=== PATIENT | female | born 1975 | race Caucasian/White ===

== ENCOUNTER 2016-07-04 11:51 | Emergency (ER) | payer BC ==
[2016-07-04 12:12] VITALS: BP 136/96; BMI 44.6
[2016-07-04] MEDS ORDERED: TORADOL 60 MG VIAL IM ONE (12:17)
[2016-07-04] MEDS ORDERED: NORFLEX INJ IM ONE (12:17)
[2016-07-04] MEDS ORDERED: NORFLEX INJ ONE (12:20)
[2016-07-04] MEDS ORDERED: TORADOL 60 MG VIAL ONE (12:20)
--- NOTE | 2016-07-04 12:28 | DR.GENAD ---
HPI - PCP Primary Care Physician: SHEILA SALAZAR - HPI Comment HPI Comment: HISTORY BELOW. - Complaint/Symptoms Chief Complaint Doctors Comments: LOWER BACK PAIN GOING TO RIGHT LEG, SOMETIMES LEFT WELL. NECK PAIN AND CARPAL TUNNEL SYNDROM. FLARE UP PAST FEW DAYS. WORSE TONIGHT. HEADACHE PRESENT. Chief Complaint:: PATIENT STATED THAT HAS BACK PAIN WITH NUMBNESS IN RIGHT LEG AND SOMETIMES LEFT. TWO DISCS IN NECK WITH HEADACHE. CARPAL TUNNEL IN BOTH ARMS - Nurses notes reviewed Nurses Notes Review: Yes - Source History Provided: Patient - Mode of Arrival Mode of Arrival: Ambulatory - Timing Onset of Chief Complaint: 12/13/15 Came on: Suddenly - Duration Duration: Constant Duration: Days - Severity Severity: Moderate PMH - PMH Past Medical History: Yes Past Medical History: Anxiety, Hypertension Past Surgical History: Yes Surgical History: Cholecystectomy, Ortho Surgery, Other Past Surgical History Comment: BREAST REDUCTION, TUMMY TUCK - Family History History of Family Medical Conditions: Yes Family Medical History: Diabetes Mellitus - Social History Does patient currently use any type of tobacco product: No Have you used tobacco products in the last 12 months: No Type of Tobacco Use: None Does any household member use tobacco: No Alcohol Use: Occasionally Do you use any recreational Drugs:: No Lives With: Family Lives Where: Home - infectious screening In the last 2 months have you had wt loss of >10#?: NO Have you had fever, night sweats or hemotysis?: No Have you traveled outside the country in the last 6 months?: No Isolation: Standard ROS - Review of Systems Constitutional: No Symptoms Reported Eyes: No Symptoms Reported ENTM: No Symptoms Reported Respiratoy: No Symptoms Reported Cardiovascular: No Symptoms Reported Gastrointestinal/Abdominal: No Symptoms Reported Genitourinary: No Symptoms Reported Neurological: Headache Musculoskeletal: Back Pain, Muscle Pain, Back, Wrist, Leg Integumentary: No Symptoms Reported Hematologic/Lymphatic: No Symptoms Reported Endocrine: No Symptoms Reported All Other Systems: Reviewed and Negative PE - Vital Signs Vitals: Pulse Rate 70 Respiratory Rate 20 Blood Pressure [Right Arm] 125/83 Blood Pressure 136/96 O2 Sat by Pulse Oximetry 99 - General Limitations: No Limitations General Appearance: Alert - Head Head Exam: Normal Inspection - Eyes Eye exam: Normal Appearance - ENT ENT Exam: Normal External Ear Exam External Ear Exam: Normal External Inspection TM/Canal Exam: Bilateral Normal Nose Exam: Normal Nose Exam Mouth Exam: Normal Inspection Throat Exam: Normal Inspection - Neck Neck Exam: Trachea Midline - Chest Chest Inspection: Symmetric Chest Wall Rise - Respiratory Respiratory Exam: Normal Lung Sounds Bilat Respiratory Exam: Bilateral Clear to Auscultation - Cardiovascular Cardiovascular Exam: Regular Rate, Normal Rhythm, Normal Heart Sounds - Abdominal Exam Abdominal Exam: Normal Inspection - Extremities Extremities Exam: Tenderness (LEFT WRIST, RIGHT LEG) - Back Back Exam: Paraspinal Tenderness (LOWER BACK) - Neurologic Neurological Exam: Alert, Oriented X3, CN II-XII Intact - Psychiatric Psychiatric Exam: Anxious - Skin Skin Exam: Normal Color MDM - Differential Diagnosis Differential Diagnosis: LOWER BACK PAIN, SCIATICA, LEFT WRIST PAIN, CARPAL TUNNEL SYNDROME Course - Treatment Treatment: SEE ORDERS - Education/Counseling Education/Counseling: Patient, Education Educated On: Treatment, Diagnosis, Needs for Follow Up - Diagnosis Discharge Problem: Sciatica, Low back pain, Cervical disc disease, Carpal tunnel syndrome - Discharge Plan Disposition: 01 HOME, SELF-CARE Condition: Stable Prescriptions: Hydrocodone-Acetaminophen [[place] 5-325 mg] 1 tab PO Q6H PRN #12 tab PRN Reason: Pain - Follow ups/Referrals Follow ups/Referrals: BRAVO SALAZAR [Primary Care Provider] - 2 days - Instructions Instructions: Sciatica, Back Pain, Adult, [id number], Cervical Strain and Sprain With Rehab-SportsMed Additional Instructions: RETURN TO ED IF WORSE.
== END 2016-07-04 13:05 | disposition home or self-care (01) ==
LOC: ER 11:51
DX: M54.30 Sciatica, unspecified side (principal); M54.5 Low back pain; M50.90 Cervical disc disorder, unspecified, unspecified cervical region; G56.00 Carpal tunnel syndrome, unspecified upper limb
CPT/HCPCS: 96372; 99282; J1885; J2360

== ENCOUNTER → 2016-07-08 | Outpatient (CLI) | payer BC ==
[2016-07-04 12:12] VITALS: BP 136/96
--- NOTE | 2016-07-08 10:26 | MRI ---
HISTORY: Radiculopathy lumbosacral region, history of lumbar spine surgery Study: MRI lumbar spine with and without contrast Comparison: 02/25/2016 Technique: Multiplanar multi-sequence MRI of the lumbar spine was obtained. Sagittal T1, sagittal T 2, and stir weighted images, axial T1, and axial T2 images were obtained. Findings: Normal alignment of the lumbar spine. No abnormal cord or marrow signal is identified. Again noted a re postsurgical changes reflecting previous laminectomy at L3-L4 and L4-5. There is minimal soft tis bette enhancement in the posterior surgical bed. No evidence of abnormal nerve root enhancement. There is multilevel disc desiccation and spondylosis again seen. The paraspinal soft tissues are within n ormal limits. The conus terminates at the thoracolumbar junction. T12 -- L1: No significant stenosis identified. L1 -- L2: Mild to moderate bilateral facet hypertrophic and degenerative changes without significant stenosis identified. L2 -- L3: Moderate bilateral facet degenerative changes without significant stenosis identified. L3 -- L4: Post-laminectomy changes are present with moderate bilateral facet hypertrophic changes an d a circumferential disc bulge resulting in mild to moderate bilateral foraminal narrowing. L4 -- L5: Post-laminectomy changes are noted with a large disc bulge asymmetric to the right with re sultant moderate to severe right foraminal stenosis and likely encroachment of the exiting right L4 nerve. Moderate bilateral facet degenerative changes. L5 -- S1: There is a stable large right paracentral disc protrusion with mild inferior extrusion livier t causes lateral recess and foraminal stenosis on the right side likely contacting the exiting right L5 nerve also likely contacting the descending right S1 nerve IMPRESSION: 1. Stable large right paracentral disc protrusion at L5-S1 suspected to contact the exiting right L5 nerve root and descending right S1 nerve, correlate with physical exam findings. 2. Large broad-based disc bulge at L4-5, asymmetric to the right also causing moderate to severe rig ht foraminal stenosis. 3. Chronic postsurgical changes at L3-L4 and L4-5 post laminectomy without evidence of abnormal post contrast enhancement. Reported By:
== END ==
LOC: RAD 08:29
PROVIDERS: ATTEND Orthopaedic Surgery Orthopaedic Surgery of the Spine
DX: M54.17 Radiculopathy, lumbosacral region (principal)
CPT/HCPCS: 72158

== ENCOUNTER 2016-07-29 15:20 | Emergency (ER) | payer BC ==
[2016-07-29 15:25] VITALS: BP 161/93; BMI 45.1
--- NOTE | 2016-07-29 15:55 | ED.ABDFE ---
HPI - Time seen Time seen: 15:50 - PCP Primary Care Physician: Nadja SALAZAR - Complaint Chief Complaint Doctors Comments: Patient admits to severe abdominal pain associated with nausera for several weeks. She also states that she had had diarrhea for 2-3 days w/o blood or mucus. She denies colonic bowel disease and cardiopulmonary disease. She is a non smoker and denies alcohol use. Chief Complaint:: PT. C/O SEVERE ABDOMINAL PAIN. PCP CHANGED ANTACID TO PEPCID. PT. C/O NAUSEA CONSTANTLY. - Source History Provided: Patient - Mode of arrival Mode of Arrival: Ambulatory - Timing Onset of Chief Complaint: 07/29/16 PMH - PMH Past Medical History: Yes Past Medical History: Anxiety, Hypertension Past Surgical History: Yes Surgical History: Cholecystectomy, Ortho Surgery, Other Past Surgical History Comment: [place] - Family History History of Family Medical Conditions: Yes Family Medical History: Diabetes Mellitus - Social History Does patient currently use any type of tobacco product: No Have you used tobacco products in the last 12 months: No Type of Tobacco Use: None Does any household member use tobacco: No Alcohol Use: None Do you use any recreational Drugs:: No Lives With: Family Lives Where: Home - infectious screening In the last 2 months have you had wt loss of >10#?: NO Have you had fever, night sweats or hemotysis?: No Have you traveled outside the country in the last 6 months?: No Isolation: Standard ROS - Review of Systems Constitutional: No Symptoms Reported Eyes: No Symptoms Reported ENTM: No Symptoms Reported Respiratoy: No Symptoms Reported Cardiovascular: No Symptoms Reported Gastrointestinal/Abdominal: Abdominal Pain, Diarrhea, Nausea, Other (epigastric) Genitourinary: No Symptoms Reported Neurological: No Symptoms Reported Musculoskeletal: No Symptoms Reported Integumentary: No Symptoms Reported Hematologic/Lymphatic: No Symptoms Reported Endocrine: No Symptoms Reported Psychiatric: No Symptoms Reported All Other Systems: Reviewed and Negative PE - Vital Signs Vitals: Temperature 98.1 F Pulse Rate 87 Respiratory Rate 17 Blood Pressure [Right Arm] 125/83 Blood Pressure 161/93 O2 Sat by Pulse Oximetry 96 - General Limitations: No Limitations General Appearance: Alert, In No Apparent Distress - Head Head Exam: Normal Inspection, Atraumatic - Eyes Eye exam: Normal Appearance, PERRL, EOMI - ENT ENT Exam: Normal Exam, Normal Oropharynx - Neck Neck Exam: Normal Inspection, Full ROM - Chest Chest Inspection: Normal Inspection, Symmetric Chest Wall Rise - Respiratory Respiratory Exam: Normal Lung Sounds Bilat Respiratory Exam: Bilateral Clear to Auscultation - Cardiovascular Cardiovascular Exam: Regular Rate, Normal Rhythm - Abdominal Exam Abdominal Exam: Normal Inspection Abdominal Tenderness: LUQ, Epigastrium, Suprapubic, Moderate - Rectal Rectal Exam: Deferred - Back Back Exam: Normal Inspection - Extremeties Extremities Exam: Normal Inspection, Full ROM - External Exam: Female: Deferred : Speculum Exam (Female): Deferred : Bimanual Exam (female): Deferred - Neurologic Neurological Exam: Alert, Oriented X3, CN II-XII Intact - Psychiatric Psychiatric Exam: Normal Affect - Skin Skin Exam: Warm, Dry, Intact Course - Reevaluation 1st: Unchanged ROR - Labs Reviewed Result Diagrams: 07/29/16 16:00 07/29/16 16:00 Laboratory: WBC 8.5 X10^3/uL (3.6-10.0) 07/29/16 16:00 RBC 4.57 X10^6/uL (3.5-5.4) 07/29/16 16:00 Hgb 13.5 g/dL (12.0-16.0) 07/29/16 16:00 Hct 39.7 % (36.0-47.0) 07/29/16 16:00 MCV 86.9 fL (80.0-100.0) 07/29/16 16:00 MCH 29.6 pg (27.0-34.0) 07/29/16 16:00 MCHC 34.0 g/dL (33.0-35.0) 07/29/16 16:00 RDW 13.7 % (11.6-16.5) 07/29/16 16:00 Plt Count 188 X10^3/uL (150.0-450.0) 07/29/16 16:00 MPV 9.2 fL (7.4-11.0) 07/29/16 16:00 Neut % 70.8 % (42.0-75.0) 07/29/16 16:00 Lymph % 20.1 % (21.0-51.0) L 07/29/16 16:00 [place] % 7.3 % (0.0-13.0) 07/29/16 16:00 Eos % 1.0 % (0.9-2.9) 07/29/16 16:00 Baso % 0.8 % (0.2-1.0) 07/29/16 16:00 Neut # 6.1 x10^3/uL (2.2-4.8) H 07/29/16 16:00 Lymph # 1.7 X10^3/uL (1.3-2.9) 07/29/16 16:00 [place] # 0.6 x10^3/uL (0.3-0.8) 07/29/16 16:00 Eos # 0.1 x10^3/uL (0.0-0.2) 07/29/16 16:00 Baso # 0.1 X10^3/uL (0.0-0.1) 07/29/16 16:00 Absolute Nucleated RBC 0.1 /100WBC 07/29/16 16:00 Sodium 140 mmol/L (136-145) 07/29/16 16:00 Corrected Sodium TNP 07/29/16 16:00 Potassium 3.7 mmol/L (3.5-5.1) 07/29/16 16:00 Chloride 103 mmol/L (98-107) 07/29/16 16:00 Carbon Dioxide 28.2 mmol/L (21-32) 07/29/16 16:00 BUN 18 mg/dL (7-18) 07/29/16 16:00 Creatinine 0.83 mg/dL (0.55-1.02) 07/29/16 16:00 Est GFR (MDRD) Af Amer > 60 (>60) 07/29/16 16:00 Est GFR (MDRD) Non-Af > 60 (>60) 07/29/16 16:00 Glucose 109 mg/dL (65-99) H 07/29/16 16:00 Calcium 8.8 mg/dL (8.5-10.1) 07/29/16 16:00 Corrected Calcium TNP 07/29/16 16:00 Total Bilirubin 0.40 mg/dL (0.2-1.0) 07/29/16 16:00 AST 22 Units/L (15-37) 07/29/16 16:00 ALT 34 Units/L (12-78) 07/29/16 16:00 Alkaline Phosphatase 56 Units/L (46-116) 07/29/16 16:00 C-Reactive Protein 6.10 mg/L (0-3.0) H 07/29/16 16:00 Total Protein 7.5 g/dL (6.4-8.2) 07/29/16 16:00 Albumin 3.6 g/dL (3.4-5.0) 07/29/16 16:00 Globulin 3.9 g/dL (2.5-4.5) 07/29/16 16:00 Albumin/Globulin Ratio 0.9 Ratio (1.1-2.1) L 07/29/16 16:00 Amylase 52 Units/L (25-115) 07/29/16 16:00 Lipase 113 Units/L (73-393) 07/29/16 16:00 Specimen Type Clean catch urine 07/29/16 15:57 Urine Color Yellow (YELLOW) 07/29/16 15:57 Urine Appearance Hazy (CLEAR) 07/29/16 15:57 Urine pH 6.5 (5.0 - 8.0) 07/29/16 15:57 Ur Specific Counce 1.010 (1.000-1.030) 07/29/16 15:57 Urine Protein Negative (NEGATIVE) 07/29/16 15:57 Urine Glucose (UA) Negative (NEGATIVE) 07/29/16 15:57 Urine Ketones Negative (NEGATIVE) 07/29/16 15:57 Urine Occult Blood Negative (NEGATIVE) 07/29/16 15:57 Urine Nitrite Negative (NEGATIVE) 07/29/16 15:57 Urine Bilirubin Negative (NEGATIVE) 07/29/16 15:57 Urine Urobilinogen Normal (NORMAL) 07/29/16 15:57 Ur Leukocyte Esterase Negative (NEGATIVE) 07/29/16 15:57 Urine RBC 0-2 /HPF (NEGATIVE) 07/29/16 15:57 Urine WBC 0-2 /HPF (NEGATIVE) 07/29/16 15:57 Ur Squamous Epith Cells Rare /HPF (NEGATIVE) 07/29/16 15:57 Urine Bacteria Trace /HPF (NEGATIVE) 07/29/16 15:57 Ur Culture Indicated? No/not indicated 07/29/16 15:57 H. pylori IgG Antibody Negative (NEGATIVE) 07/29/16 16:00 - XRAY XRAY Interpreted by: Radiologist (Large midline subfascial anterior abdominal wall fluid collection with associated stranding of subcutaneous fat planes in the lower abdomen, apprantly related to previous "Tummy tuck" surgery. Right prominent ovarian cystic structures versus right hydrosalpinx with a small amount of nonspecific free fluid in the cul-de-sac.) - Diagnosis Discharge Problem: Abdominal wall fluid collections - Discharge Plan Condition: Stable - Follow ups/Referrals Follow ups/Referrals: BRAVO SALAZAR [Primary Care Provider] - 3 days - Instructions
[2016-07-29] MEDS ORDERED: TORADOL 30 MG VIAL IVP ONE (15:58)
[2016-07-29] MEDS ORDERED: TORADOL 30 MG VIAL ONE (16:00)
[2016-07-29] MEDS ORDERED: BENTYL I.M. INJ 10 MG IM ONE ×2 (16:00→16:16)
[2016-07-29 16:15] LABS: BASOPHILS # (AUTO) 0.1 X10^3/uL (0.0-0.1); BASOPHILS % (AUTO) 0.8 % (0.2-1.0); EOSINOPHILS # (AUTO) 0.1 x10^3/uL (0.0-0.2); HEMATOCRIT 39.7 % (36.0-47.0); HEMOGLOBIN 13.5 g/dL (12.0-16.0); LYMPHOCYTES # (AUTO) 1.7 X10^3/uL (1.3-2.9); LYMPHOCYTES % (AUTO) 20.1 % (21.0-51.0); MEAN CORPUSCULAR HEMOGLOBIN 29.6 pg (27.0-34.0); MEAN CORPUSCULAR VOLUME 86.9 fL (80.0-100.0); MEAN PLATELET VOLUME 9.2 fL (7.4-11.0); MONOCYTES # (AUTO) 0.6 x10^3/uL (0.3-0.8); MONOCYTES % (AUTO) 7.3 % (0.0-13.0); NEUTROPHILS # (AUTO) 6.1 x10^3/uL (2.2-4.8); NEUTROPHILS % (AUTO) 70.8 % (42.0-75.0); PLATELET COUNT 188 X10^3/uL (150.0-450.0); RED BLOOD COUNT 4.57 X10^6/uL (3.5-5.4); RED CELL DISTRIBUTION WIDTH 13.7 % (11.6-16.5); WHITE BLOOD COUNT 8.5 X10^3/uL (3.6-10.0)
[2016-07-29 16:36] LABS: ALANINE AMINOTRANSFERASE 34 Units/L (12-78); ALBUMIN 3.6 g/dL (3.4-5.0); ALKALINE PHOSPHATASE 56 Units/L (46-116); AMYLASE 52 Units/L (25-115); ASPARTATE AMINO TRANSFERASE 22 Units/L (15-37); BLOOD UREA NITROGEN 18 mg/dL (7-18); CALCIUM 8.8 mg/dL (8.5-10.1); CARBON DIOXIDE 28.2 mmol/L (21-32); CHLORIDE 103 mmol/L (98-107); CREATININE 0.83 mg/dL (0.55-1.02); GLUCOSE 109 mg/dL (65-99); LIPASE 113 Units/L (73-393); SODIUM 140 mmol/L (136-145); TOTAL PROTEIN 7.5 g/dL (6.4-8.2); eGFR BLACK RACES > 60 (>60); eGFR NON BLACK RACES > 60 (>60)
[2016-07-29] MEDS ORDERED: ZOFRAN INJ 4 MG VIAL ONE (16:45)
[2016-07-29] MEDS ORDERED: ZOFRAN INJ 4 MG VIAL IVP ONE (16:45)
[2016-07-29 17:01] LABS: BILIRUBIN,URINE NEGATIVE (NEGATIVE); BLOOD/HEMOGLOBIN,URINE NEGATIVE (NEGATIVE); GLUCOSE, URINE NEGATIVE (NEGATIVE); KETONES,URINE NEGATIVE (NEGATIVE); LEUKOCYTE ESTERASE ,URINE NEGATIVE (NEGATIVE); NITRITES,URINE NEGATIVE (NEGATIVE); PH,URINE 6.5 (5.0 - 8.0); PROTEIN,URINE NEGATIVE (NEGATIVE); UROBILINOGEN,URINE NORMAL (NORMAL)
[2016-07-29 17:05] LABS: APPEARANCE,URINE HAZY (CLEAR); BACTERIA,URINE TRACE /HPF (NEGATIVE); COLOR,URINE YELLOW (YELLOW); RBC,URINE 0-2 /HPF (NEGATIVE); SQUAMOUS EPITHELIAL CELL,UR RARE /HPF (NEGATIVE)
[2016-07-29] MEDS ORDERED: NS 100 ML IV 100 ML IV ONE (17:10)
--- NOTE | 2016-07-29 17:46 | CT ---
HISTORY: Abdominal pain upper abdomen Study: CT abdomen and pelvis with IV contrast Comparison: None Technique: Multiple axial images of the abdomen and pelvis were obtained from the lung bases to the pubic symph ysis with the administration of IV contrast. Sagittal and coronal reformations were provided. Findings: The visualized portions of the lung bases are unremarkable. The liver, spleen, pancreas, kidneys, a nd adrenal glands are unremarkable in their CT appearance. The gallbladder is surgically absent. The re is no biliary dilatation.. There is a small amount of nonspecific free fluid in the cul-de-sac.. The appendix is unremarkable. There is a mid abdominal subcu Ca Joanie fluid collection , lenticul ar in shape, measuring up to 2.6 centimeters thickness behind the emboli kiss and up to 12 centimete rs in transverse width and over 18 centimeters sagittal length. There is stranding of subcutaneous f at planes in the lower abdomen ventrally. No bowel wall thickening or bowel dilatation is present. The colon is unremarkable. Specifically, there is no diverticulosis noted within the sigmoid colon. The uterus is normal in size with an IUD in good position. There are right ovarian cysts measuring up to 3 centimeters diameter. The findings suggest possible hydrosalpinx. The bony structures are g rossly intact. IMPRESSION: 1. Large midline subfascial anterior abdominal wall fluid collection with associated stranding of s ubcutaneous fat planes in the lower abdomen, apparently related to previous 'Tummy tuck' surgery. 2. Right prominent ovarian cystic structures versus right hydrosalpinx with a small amount of nonspe cific free fluid in the cul-de-sac. Reported By:
== END 2016-07-29 18:29 | disposition home or self-care (01) ==
LOC: ER 15:37
DX: R18.8 Other ascites (principal)
CPT/HCPCS: 36415; 74177; 80053; 81001; 82150; 83690; 85025; 86140; 86677; 96365; 96372; 96374; 96375; 99283; A4222; J0500; J1885; J2405

== ENCOUNTER 2016-08-12 09:20 | Emergency (ER) | payer BC ==
[2016-08-12 09:30] VITALS: BP 139/80; BMI 45.1
[2016-08-12] MEDS ORDERED: DILAUDID INJ IM ONE (09:34)
--- NOTE | 2016-08-12 09:35 | DR.GENAD ---
HPI - PCP Primary Care Physician: sudha ross - Complaint/Symptoms Chief Complaint Doctors Comments: Patient admits to back surgery due to bulging disc in low lumbar area. The pain is worse this morning . Has not taken any medication. Previous back surgery. Chief Complaint:: patient stated she has a chronic back problem but she was sitting in the floor dusting and it starting hurting worse yesterday. - Source History Provided: Patient - Mode of Arrival Mode of Arrival: Ambulatory - Timing Onset of Chief Complaint: 08/11/16 PMH - PMH Past Medical History: Yes Past Medical History: Anxiety, Hypertension Past Surgical History: Yes Surgical History: Cholecystectomy, Ortho Surgery, Other - Family History History of Family Medical Conditions: Yes Family Medical History: Diabetes Mellitus - Social History Does patient currently use any type of tobacco product: No Have you used tobacco products in the last 12 months: No Type of Tobacco Use: None Does any household member use tobacco: No Do you use any recreational Drugs:: No Lives With: Family Lives Where: Home - infectious screening In the last 2 months have you had wt loss of >10#?: NO Have you had fever, night sweats or hemotysis?: No Have you traveled outside the country in the last 6 months?: No Isolation: Standard ROS - Review of Systems Constitutional: No Symptoms Reported Eyes: No Symptoms Reported ENTM: No Symptoms Reported Respiratoy: No Symptoms Reported Cardiovascular: No Symptoms Reported Gastrointestinal/Abdominal: No Symptoms Reported Genitourinary: No Symptoms Reported Neurological: No Symptoms Reported Musculoskeletal: Back Pain (low back) Integumentary: No Symptoms Reported Endocrine: No Symptoms Reported Psychiatric: No Symptoms Reported All Other Systems: Reviewed and Negative PE - Vital Signs Vitals: Temperature 97.7 F Pulse Rate 78 Respiratory Rate 16 Blood Pressure [Right Arm] 125/83 Blood Pressure 139/80 O2 Sat by Pulse Oximetry 99 - General Limitations: No Limitations General Appearance: Alert - Head Head Exam: Normal Inspection, Atraumatic - Eyes Eye exam: Normal Appearance, PERRL, EOMI - ENT ENT Exam: Normal Exam External Ear Exam: Normal External Inspection TM/Canal Exam: Bilateral Normal Nose Exam: Normal Nose Exam Mouth Exam: Normal Inspection Throat Exam: Normal Inspection - Neck Neck Exam: Trachea Midline - Chest Chest Inspection: Normal Inspection - Respiratory Respiratory Exam: Normal Lung Sounds Bilat Respiratory Exam: Bilateral Clear to Auscultation - Cardiovascular Cardiovascular Exam: Regular Rate - Abdominal Exam Abdominal Exam: Normal Inspection Abdominal Tenderness: negative: RUQ, RLQ, LUQ, LLQ, Epigastrium, Suprapubic, Diffuse, Mild, Moderate, Severe, Other - Extremities Extremities Exam: Normal Inspection - Back Back Exam: Tenderness, Muscle Spasm - Neurologic Neurological Exam: Alert, Oriented X3, CN II-XII Intact - Psychiatric Psychiatric Exam: Normal Affect - Skin Skin Exam: Warm, Dry, Intact Course - Reevaluation 1st: Improved - Diagnosis Discharge Problem: Low back pain Qualifiers: Chronicity: acute Back pain laterality: midline Sciatica presence: without sciatica Qualified Code(s): M54.5 - Low back pain - Discharge Plan Condition: Stable - Follow ups/Referrals Follow ups/Referrals: BRAVO ROSS [Primary Care Provider] - 3 days - Instructions
[2016-08-12] MEDS ORDERED: DILAUDID INJ ONE (09:38)
[2016-08-12] MEDS ORDERED: VALIUM INJ IM ONE (09:58)
[2016-08-12] MEDS ORDERED: VALIUM INJ ONE (10:01)
== END 2016-08-12 10:48 | disposition home or self-care (01) ==
LOC: ER 09:30
DX: M54.5 Low back pain (principal)
CPT/HCPCS: 96372; 99282; J3360

== ENCOUNTER 2016-08-22 17:03 | Emergency (ER) | payer BC ==
[2016-08-22 17:08] VITALS: BP 143/85; BMI 44.5
[2016-08-22] MEDS ORDERED: TORADOL 60 MG VIAL IM ONE (17:29)
--- NOTE | 2016-08-22 17:34 | DR.GENAD ---
HPI - PCP Primary Care Physician: SHEILA SALAZAR - Complaint/Symptoms Chief Complaint Doctors Comments: Patient states she is having right sided neck pain that radiates down her right side and anterior chest for the past 24 hours. States she is having anterior chest pain with the pain 8 of 10. She denies SOB, cold, cough, fever or chills. States pain is worst when she move and ease at times when she lay down. She denies any recent trauma. States she was suppose to have back surgery in [place] Apr 2016 but she had a staph infection and they would not do the surgery. She went to [place] Wednesday and had an EKG and they told her it was alright. She denies numbness or tingling. States she did not take any antibiotics for the sore under her umbilicus. Chief Complaint:: PATIENT STATED THAT SHE IS HAVING PAIN IN HER NECK THAT IS RUNNING DOWN INTO HER CHEST. BEEN GOING ON FOR AROUND A WEEK. SHE THINKS IT MAYBE STRESS RELATED. - Nurses notes reviewed Nurses Notes Review: Yes - Source History Provided: Patient - Mode of Arrival Mode of Arrival: Ambulatory - Timing Onset of Chief Complaint: 08/15/16 Came on: Gradually - Duration Duration: Constant How lon Duration: Hours - Location Location: neck, back and anterior chest - Severity Severity: Moderate - Modifying Factors Worsens:: neck and chest pain Improves:: nothing PMH - PMH Past Medical History: Yes Past Medical History: Anxiety, Hypertension Past Surgical History: Yes Surgical History: Cholecystectomy, Ortho Surgery, Other - Family History History of Family Medical Conditions: Yes Family Medical History: Diabetes Mellitus - Social History Does patient currently use any type of tobacco product: No Have you used tobacco products in the last 12 months: No Type of Tobacco Use: None Does any household member use tobacco: No Alcohol Use: Rarely Do you use any recreational Drugs:: No Lives With: Family Lives Where: Home - infectious screening In the last 2 months have you had wt loss of >10#?: NO Have you had fever, night sweats or hemotysis?: No Have you traveled outside the country in the last 6 months?: No Isolation: Standard ROS - Review of Systems Constitutional: No Symptoms Reported. negative: See HPI, Chills, Diaphoresis, Fever, Malaise, Weakness, Irritable, Fatigue, Loss of Appetite, Other Eyes: No Symptoms Reported. negative: See HPI, Eye Pain, Blurred Vision, Tearing, Discharge, Photophobia, Diplopia, Other ENTM: No Symptoms Reported. negative: See HPI, Ear Pain, Ear Discharge, Pulling on Ears, Hearing Loss, Nose Pain, Nose Discharge, Epistaxis, Nose Congestion, Mouth Pain, Mouth Swelling, Loose Teeth, Drooling, Throat Pain, Throat Swelling, Ear Foreign Body Respiratoy: No Symptoms Reported Cardiovascular: No Symptoms Reported, Chest Pain Gastrointestinal/Abdominal: No Symptoms Reported. negative: See HPI, Abdominal Pain, Constipation, Diarrhea, Nausea, Vomiting, Food Intolerance, Other Genitourinary: No Symptoms Reported. negative: See HPI, Discharge, Dysuria, Frequency, Hematuria, Pain, Bleeding, Other Neurological: No Symptoms Reported Musculoskeletal: No Symptoms Reported, Right, Neck Integumentary: No Symptoms Reported Hematologic/Lymphatic: No Symptoms Reported Endocrine: No Symptoms Reported Psychiatric: No Symptoms Reported PE - Vital Signs Vitals: Temperature 97.9 F Pulse Rate 85 Respiratory Rate 18 Blood Pressure [Right Arm] 125/83 Blood Pressure 143/85 O2 Sat by Pulse Oximetry 99 - General Limitations: No Limitations General Appearance: Alert, In Distress (moderate) - Head Head Exam: Normal Inspection, Atraumatic, Normocephalic - Eyes Eye exam: Normal Appearance, PERRL, EOMI. negative: Scleral Icterus, Conjunctival Injection, Nystagmus, Miosis, Mydrasis, Periorbital Swelling, Periorbital Tenderness, Other - ENT ENT Exam: Normal Exam, Normal Oropharynx, Normal External Ear Exam, Mucous Membranes Moist, TM's Normal Bilaterally External Ear Exam: Normal External Inspection TM/Canal Exam: Bilateral Normal Nose Exam: Normal Nose Exam Mouth Exam: Normal Inspection Throat Exam: Normal Inspection. negative: Tonsillar Erythema, Tonsillomegaly, Tonsillar Exudate, R Peritonsillar Mass, L Peritonsillar Mass, Muffled Voice, Other - Neck Neck Exam: Normal Inspection, Full ROM, Trachea Midline. negative: Tenderness, Meningismus, Lymphadenopathy, Thyromegaly, Other - Chest Chest Inspection: Normal Inspection, Symmetric Chest Wall Rise. negative: Tenderness, Rash, Abscess, Other - Respiratory Respiratory Exam: Normal Lung Sounds Bilat Respiratory Exam: Bilateral Clear to Auscultation - Cardiovascular Cardiovascular Exam: Regular Rate, Normal Rhythm, Normal Heart Sounds - Abdominal Exam Abdominal Exam: Normal Inspection, Normal Bowel Sounds, Soft. negative: Distention, Tenderness, Guarding, Rebound, Rigidity, Dimnished Bowel Sounds, Hyperactive Bowel Sounds, Hypoactive Bowel Sounds, Organomegaly, Trauma, Incision, Ascites, Mass, Bruit, Pulsatile Mass, Hernia, Other Abdominal Tenderness: negative: RUQ, RLQ, LUQ, LLQ, Epigastrium, Suprapubic, Diffuse, Mild, Moderate, Severe, Other - Extremities Extremities Exam: Normal Inspection, Full ROM, Tenderness, Normal Capillary Refill. negative: Edema, Joint Swelling, Calf Tenderness, Other - Back Back Exam: Normal Inspection, Full ROM. negative: Tenderness, (R) CVA Tenderness, (L) CVA Tenderness, Muscle Spasm, Paraspinal Tenderness, Vertebral Tenderness, Rashes, (R) Sciatic Notch Tenderness, (L) Sciatic Notch Tendern, (R ) Straight Leg Raise, (L) Straight Leg Raise, Other - Neurologic Neurological Exam: Alert, Oriented X3, CN II-XII Intact, Reflexes Normal. negative: Normal Gait (gait not tested) - Psychiatric Psychiatric Exam: Normal Affect, Normal Mood. negative: Depressed, Agitated, Anxious, Flat Affect, Manic, Homicidal Ideation, Suicidal Ideation, Other - Skin Skin Exam: Warm, Dry, Intact, Normal Color ROR - Labs Reviewed Laboratory Results Reviewed?: Yes (All labs and x-ray results reviewed and discussed with patient) Result Diagrams: 08/22/16 17:40 08/22/16 17:40 Laboratory: WBC 11.0 X10^3/uL (3.6-10.0) H 08/22/16 17:40 RBC 4.68 X10^6/uL (3.5-5.4) 08/22/16 17:40 Hgb 13.7 g/dL (12.0-16.0) 08/22/16 17:40 Hct 41.5 % (36.0-47.0) 08/22/16 17:40 MCV 88.7 fL (80.0-100.0) 08/22/16 17:40 MCH 29.4 pg (27.0-34.0) 08/22/16 17:40 MCHC 33.1 g/dL (33.0-35.0) 08/22/16 17:40 RDW 14.2 % (11.6-16.5) 08/22/16 17:40 Plt Count 179 X10^3/uL (150.0-450.0) 08/22/16 17:40 MPV 9.4 fL (7.4-11.0) 08/22/16 17:40 Neut % 75.0 % (42.0-75.0) 08/22/16 17:40 Lymph % 16.0 % (21.0-51.0) L 08/22/16 17:40 Edgar % 7.6 % (0.0-13.0) 08/22/16 17:40 Eos % 0.9 % (0.9-2.9) 08/22/16 17:40 Baso % 0.5 % (0.2-1.0) 08/22/16 17:40 Neut # 8.3 x10^3/uL (2.2-4.8) H 08/22/16 17:40 Lymph # 1.8 X10^3/uL (1.3-2.9) 08/22/16 17:40 Edgar # 0.8 x10^3/uL (0.3-0.8) 08/22/16 17:40 Eos # 0.1 x10^3/uL (0.0-0.2) 08/22/16 17:40 Baso # 0.1 X10^3/uL (0.0-0.1) 08/22/16 17:40 Absolute Nucleated RBC 0.0 /100WBC 08/22/16 17:40 INR Target Range - 08/22/16 17:40 INR 0.92 (0.8-1.3) 08/22/16 17:40 PTT 25.5 SECONDS (22.9-36.5) 08/22/16 17:40 PTT Comment - 08/22/16 17:40 D-Dimer 877 ng/mL (0-400) H* 08/22/16 17:40 Sodium 143 mmol/L (136-145) 08/22/16 17:40 Corrected Sodium TNP 08/22/16 17:40 Potassium 3.8 mmol/L (3.5-5.1) 08/22/16 17:40 Chloride 106 mmol/L (98-107) 08/22/16 17:40 Carbon Dioxide 26.8 mmol/L (21-32) 08/22/16 17:40 BUN 16 mg/dL (7-18) 08/22/16 17:40 Creatinine 0.84 mg/dL (0.55-1.02) 08/22/16 17:40 Est GFR (MDRD) Af Amer > 60 (>60) 08/22/16 17:40 Est GFR (MDRD) Non-Af > 60 (>60) 08/22/16 17:40 Glucose 85 mg/dL (65-99) 08/22/16 17:40 Calcium 8.9 mg/dL (8.5-10.1) 08/22/16 17:40 Corrected Calcium TNP 08/22/16 17:40 Magnesium 1.7 mg/dL (1.7-2.9) 08/22/16 17:40 Total Bilirubin 0.40 mg/dL (0.2-1.0) 08/22/16 17:40 AST 14 Units/L (15-37) L 08/22/16 17:40 ALT 28 Units/L (12-78) 08/22/16 17:40 Alkaline Phosphatase 57 Units/L (46-116) 08/22/16 17:40 Creatine Kinase 49 Units/L (26-192) 08/22/16 17:40 CK-MB (CK-2) < 1.0 ng/mL (0-4.0) 08/22/16 17:40 CK/CKMB % Calc 2.0 % (<4) 08/22/16 17:40 Troponin I < 0.02 ng/mL (0-1.5) 08/22/16 17:40 Total Protein 7.7 g/dL (6.4-8.2) 08/22/16 17:40 Albumin 3.7 g/dL (3.4-5.0) 08/22/16 17:40 Globulin 4.0 g/dL (2.5-4.5) 08/22/16 17:40 Albumin/Globulin Ratio 0.9 Ratio (1.1-2.1) L 08/22/16 17:40 - XRAY XRAY Interpreted by: Radiologist (CT cervical spine: no significant abnormality. CXR: No acut caradiopulmonary disease.) XRAY Findings: CTA: No evidence for central or large proximal PTE. No acute process - EKG Rate: 82 [place]: Normal Rhythm: NSR Hypertrophy: LVH ST: Nonsp - Diagnosis Discharge Problem: Chest pain in adult, Neck pain on right side, Muscle spasm, Cellulitis, abdominal wall - Discharge Plan Disposition: 01 HOME, SELF-CARE Condition: Stable Prescriptions: Methocarbamol [Robaxin 750 mg] 750 mg PO BID PRN #28 tab PRN Reason: Muscle Spasms Mupirocin Oint [BACTROBAN OINT 2%] 1 applic EXT BID #22 gm Sulfamethoxazole-Trimethoprim [BACTRIM DS TAB 800/160 MG *] 1 tab PO BID #20 tab - Follow ups/Referrals Follow ups/Referrals: BRAVO SALAZAR [Primary Care Provider] - 3 days - Instructions Instructions: Cervical Sprain, Nonspecific Chest Pain, Cellulitis
[2016-08-22] MEDS ORDERED: TORADOL 60 MG VIAL ONE (17:42)
[2016-08-22 17:51] LABS: BASOPHILS # (AUTO) 0.1 X10^3/uL (0.0-0.1); BASOPHILS % (AUTO) 0.5 % (0.2-1.0); EOSINOPHILS # (AUTO) 0.1 x10^3/uL (0.0-0.2); EOSINOPHILS % (AUTO) 0.9 % (0.9-2.9); HEMATOCRIT 41.5 % (36.0-47.0); HEMOGLOBIN 13.7 g/dL (12.0-16.0); LYMPHOCYTES # (AUTO) 1.8 X10^3/uL (1.3-2.9); MEAN CORPUSCULAR HEMOGLOBIN 29.4 pg (27.0-34.0); MEAN CORPUSCULAR HGB CONC 33.1 g/dL (33.0-35.0); MEAN CORPUSCULAR VOLUME 88.7 fL (80.0-100.0); MEAN PLATELET VOLUME 9.4 fL (7.4-11.0); MONOCYTES # (AUTO) 0.8 x10^3/uL (0.3-0.8); MONOCYTES % (AUTO) 7.6 % (0.0-13.0); NEUTROPHILS # (AUTO) 8.3 x10^3/uL (2.2-4.8); PLATELET COUNT 179 X10^3/uL (150.0-450.0); RED BLOOD COUNT 4.68 X10^6/uL (3.5-5.4); RED CELL DISTRIBUTION WIDTH 14.2 % (11.6-16.5)
[2016-08-22 18:08] LABS: BLOOD UREA NITROGEN 16 mg/dL (7-18); CALCIUM 8.9 mg/dL (8.5-10.1); CARBON DIOXIDE 26.8 mmol/L (21-32); CHLORIDE 106 mmol/L (98-107); CREATININE 0.84 mg/dL (0.55-1.02); GLUCOSE 85 mg/dL (65-99); SODIUM 143 mmol/L (136-145); TROPONIN I < 0.02 ng/mL (0-1.5); eGFR BLACK RACES > 60 (>60); eGFR NON BLACK RACES > 60 (>60)
--- NOTE | 2016-08-22 18:11 | RAD ---
Chest, one view Indication: Chest pain. Comparison: 02/05/2016 Findings: The cardiac silhouette is unremarkable. The lungs are clear, without focal infiltrate or p leural effusion. The bony thorax is unremarkable. Impression: No acute cardiopulmonary disease. Reported By:
[2016-08-22 18:12] LABS: ALANINE AMINOTRANSFERASE 28 Units/L (12-78); ALBUMIN 3.7 g/dL (3.4-5.0); ALKALINE PHOSPHATASE 57 Units/L (46-116); ASPARTATE AMINO TRANSFERASE 14 Units/L (15-37); CREATINE KINASE 49 Units/L (26-192); CREATINE KINASE MB < 1.0 ng/mL (0-4.0); MAGNESIUM 1.7 mg/dL (1.7-2.9); TOTAL PROTEIN 7.7 g/dL (6.4-8.2)
--- NOTE | 2016-08-22 18:13 | CT ---
CT cervical spine without contrast Indication: Neck pain, denies injury. Comparison: Cervical spine MRI 06/02/2016 Technique: CT images of the cervical spine were obtained without contrast. Automatic exposure contro l was utilized. Findings: There is straightening of the normal cervical lordosis, which may be positional artifact o r related to muscle spasm. The intervertebral alignment is normal. The vertebral body heights and fa cet joints are intact, without evidence for acute fracture or subluxation. No significant degenerati ve disease appreciated. There is no significant prevertebral soft tissue swelling. The visualized lo wer brain is grossly unremarkable. Impression: No significant abnormality. Reported By:
[2016-08-22 18:36] LABS: D DIMER 877 ng/mL (0-400)
[2016-08-22] MEDS ORDERED: NS 100 ML IV 100 ML IV ONE (18:44)
--- NOTE | 2016-08-22 19:24 | CT ---
CT angiogram of the chest with contrast Indication: Chest pain. Comparison: None Technique: CT images of the chest were obtained after IV contrast administration per protocol. Autom atic exposure control was utilized. MIP images provided. Findings: Images through the upper abdomen demonstrate previous cholecystectomy. No aggressive osseo us lesion identified. The heart size is normal, without significant pericardial thickening or pericardial effusion. Evalua tion of the pulmonary arteries is limited due to suboptimal contrast bolus timing, as the majority c ontrast is present within the left heart and aorta. No central or large proximal pulmonary arterial filling defect identified. The thoracic aorta appears normal. No intrathoracic adenopathy identified . The lungs are clear, without focal infiltrates, pleural effusion, or pneumothorax. The major airwa ys are patent. Impression: No evidence for central or large proximal PTE. No acute chest process. Reported By:
== END 2016-08-22 19:55 | disposition home or self-care (01) ==
LOC: ER 17:11
DX: R07.89 Other chest pain (principal); M54.2 Cervicalgia; M62.838 Other muscle spasm; L03.311 Cellulitis of abdominal wall
CPT/HCPCS: 36415; 71010; 71275; 72125; 80053; 82550; 82553; 83735; 84484; 85025; 85378; 85610; 85730; 93005; 93010; 96365; 96372; 99283; A4222; J1885

== ENCOUNTER 2016-10-28 11:50 | Emergency (ER) | payer BC ==
[2016-10-28 11:54] VITALS: BP 146/90; BMI 45.1
--- NOTE | 2016-10-28 12:21 | DR.FBACK ---
HPI - Time Seen Time seen: 12:20 - PCP Primary Care Physician: Nadja SALAZAR - Complaint Chief Complaint Doctor Comments: Patient with chronic lumbar pain secondary to L1-2 mild to moderate bilateral facet hypertrophic and degenerative changes. L2- 3 Moderate bilateral facet degenerative changes w/o significant stenosis, L3-L4 post laminectomy changes with circumferrential disc bulge; L5-S1 stable large right paracentral disc protrusion dated 07/08/16. She was riding in her golf cart last week and aggravated her back. Patient admits to taking hydrocodone 7.5mg 4-5 times daily without results. Chief Complaint:: PT. C/O SEVERE LOWER BACK PAIN X 3 DAYS. PT. HAD A FALL 4 DAYS AGO WHICH AGGRAVATED HER PAIN. PT. IS SCHEDULED FOR REPEAT BACK SURGERY ON 11/19/16. - Source History Provided: Patient - Mode of Arrival Mode of Arrival: Ambulatory - Timing Onset of Chief Complaint: 10/25/16 PMH - PMH Past Medical History: Yes Past Medical History: Anxiety, Hypertension Past Surgical History: Yes Surgical History: Cholecystectomy, Ortho Surgery, Other Past Surgical History Comment: BACK - Family History History of Family Medical Conditions: Yes Family Medical History: Diabetes Mellitus - Social History Does patient currently use any type of tobacco product: No Have you used tobacco products in the last 12 months: No Type of Tobacco Use: None Does any household member use tobacco: No Alcohol Use: None Do you use any recreational Drugs:: No Lives With: Spouse Lives Where: Home - infectious screening In the last 2 months have you had wt loss of >10#?: NO Have you had fever, night sweats or hemotysis?: No Have you traveled outside the country in the last 6 months?: No Isolation: Standard ROS - Review of Systems Eyes: No Symptoms Reported ENTM: No Symptoms Reported Respiratoy: No Symptoms Reported Cardiovascular: No Symptoms Reported Gastrointestinal/Abdominal: No Symptoms Reported Genitourinary: No Symptoms Reported Neurological: No Symptoms Reported Musculoskeletal: No Symptoms Reported Integumentary: No Symptoms Reported Hematologic/Lymphatic: No Symptoms Reported Endocrine: No Symptoms Reported Psychiatric: No Symptoms Reported All Other Systems: Reviewed and Negative PE - Vitals Vital Signs: Temp Pulse Resp BP BP Pulse Ox 10/28/16 11:50 97.8 F 67 18 146/90 99 08/22/16 17:04 143/85 06/13/13 16:00 125/83 - General General Appearance: Alert, In No Apparent Distress - Head Head Exam: Normal Inspection, Atraumatic - Eyes Eye exam: Normal Appearance, PERRL, EOMI - ENT ENT Exam: Normal Exam - Chest Chest Inspection: Normal Inspection, Symmetric Chest Wall Rise - Respiratory Respiratory Exam: Normal Lung Sounds Bilat Respiratory Exam: Bilateral Clear to Auscultation - Cardiovascular Cardiovascular Exam: Regular Rate, Normal Rhythm - Abdominal Exam Abdominal Exam: Normal Inspection Abdominal Tenderness: negative: RUQ, RLQ, LUQ, LLQ, Epigastrium, Suprapubic, Diffuse, Mild, Moderate, Severe, Other - Genitourinary External Exam: Female: Deferred : Speculum Exam (Female): Deferred : Bimanual Exam (female): Deferred - Extremities Extremities Exam: Normal Inspection, Full ROM - Back Back Exam: Tenderness, Other (mid low back) - Neurological Neurological Exam: Alert, Oriented X3, CN II-XII Intact - Psychiatric Psychiatric Exam: Normal Affect - Skin Skin Exam: Warm, Dry, Intact - Diagnosis Discharge Problem: Chronic lower back pain Qualifiers: Back pain laterality: midline Sciatica presence: without sciatica Qualified Code(s): M54.5 - Low back pain; G89.29 - Other chronic pain - Discharge Plan Disposition: 01 HOME, SELF-CARE Condition: Stable Prescriptions: Cyclobenzaprine HCl [Flexeril] 5 mg PO TID PRN #30 tab PRN Reason: Muscle Spasms - Follow ups/Referrals Follow ups/Referrals: BRAVO SALAZAR [Primary Care Provider] - 3 days - Instructions Instructions: Degenerative Disk Disease
[2016-10-28] MEDS ORDERED: DILAUDID INJ ONE (12:26)
[2016-10-28] MEDS ORDERED: DILAUDID INJ IM ONE (12:26)
== END 2016-10-28 13:07 | disposition home or self-care (01) ==
LOC: ER 12:00
DX: M54.5 Low back pain (principal); G89.29 Other chronic pain
CPT/HCPCS: 96372; 99282

== ENCOUNTER → 2016-10-29 | Outpatient (CLI) | payer BC ==
--- NOTE | 2016-10-29 09:54 | US ---
HISTORY: Abdominal pain. Evaluate for recurrent fluid. Study: Complete abdominal ultrasound exam. Comparison: None. Technique: Multiple fleming scale and color flow Doppler images of the abdomen were obtained. Findings: The liver is normal in echotexture. No intraparenchymal mass or intrahepatic biliary ductal dilatat ion can be identified. The gallbladder is surgically absent. The common bile duct is normal measur ing 5 millimeters. The visualized portions of the pancreas and spleen are normal in their echotextur e and size. The right and left kidney are normal in echotexture and size. The right kidney measures 11 x 5 x 7 centimeters. The left kidney measures 11 x 6 x 8 centimeters. No mass, hydronephrosis, or stone can be identified. The visualized portions of the abdominal aorta are normal in size without aneurysmal dilatation. The inferior vena cava is unremarkable as well. There is a 5 x 4 cm pocket o f hypoechoic fluid seen in the region of the abdominal scar/umbilicus which could reflect a recurren t seroma. This could be better evaluated with CT imaging with IV contrast to evaluate for any enhanc ement or imaging features of infection. IMPRESSION: 5 x 4 cm pocket of hypoechoic fluid seen in the region of the abdominal scar/umbilicus which could r eflect a recurrent seroma. This could be better evaluated with CT imaging with IV contrast to evalua te for any enhancement or imaging features of infection. No other abdominal sonographic abnormalities or changes are observed. Reported By:
== END ==
LOC: RAD 08:32
PROVIDERS: ATTEND Plastic Surgery
DX: R19.03 Right lower quadrant abdominal swelling, mass and lump (principal)
CPT/HCPCS: 76700

== ENCOUNTER → 2017-01-25 | Outpatient (CLI) | payer BC ==
--- NOTE | 2017-01-28 00:13 | RAD ---
Indication: Left ankle and foot pain. Four views of the left ankle. Conclusion: The left tibiotalar joint and syndesmosis are well maintained without degenerative or ero sive changes. Calcaneal enthesophytes are present. Reported By:
--- NOTE | 2017-01-28 12:22 | RAD ---
HISTORY: Left foot pain. Study: Three views of the left foot. Comparison: None. 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 Calcaneal enthesophytes. No acute cortical disruption or dislocation can be identified. No significant soft tissue swelling or injury can be seen. IMPRESSION: No acute osseous abnormality. Reported By:
== END | disposition home or self-care (01) | DRG 556 ==
LOC: RAD 12:33
PROVIDERS: ATTEND Nurse Practitioner Family
DX: M25.572 Pain in left ankle and joints of left foot (principal); M77.32 Calcaneal spur, left foot
CPT/HCPCS: 73610; 73630

== ENCOUNTER 2017-04-01 16:59 | Emergency (ER) | payer BC ==
[2017-04-01 17:09] VITALS: BMI 46.7
--- NOTE | 2017-04-01 17:43 | DR.GENAD ---
HPI - PCP Primary Care Physician: MARTIN - Complaint/Symptoms Chief Complaint Doctors Comments: Patient states that it feels like she is retaing fluid. Patient had a tummy tuck several months ago and has had some problems with it. She did have a revision of the procedure later. Chief Complaint:: PT C/O FLUID BUILDING UP IN HER ABD AREA. PT STATES SHE HAS A HISTORY OF A TUMMY TUCK X1 YEAR AGO AND SHE HAS BEEN HAVING A PROBLEM WITH RETAINING FLUUID IN ABD AREA. PT STATES HER GRANDDAUGHTER JUMPED ON HER ABD EARLIER AND SHE HAS BEEN IN PAIN SINCE. - Source History Provided: Patient - Mode of Arrival Mode of Arrival: Ambulatory - Timing Onset of Chief Complaint: 04/01/17 PMH - PMH Past Medical History: Yes Past Medical History: Anxiety, Hypertension Past Surgical History: Yes Surgical History: Cholecystectomy, Ortho Surgery, Other Past Surgical History Comment: TUMMY TUCK AND BACK SURGERY - Family History History of Family Medical Conditions: Yes Family Medical History: Diabetes Mellitus - Social History Does any household member use tobacco: No Alcohol Use: None Do you use any recreational Drugs:: No Lives With: Family Lives Where: Home - infectious screening In the last 2 months have you had wt loss of >10#?: NO Have you had fever, night sweats or hemotysis?: No Have you traveled outside the country in the last 6 months?: No Isolation: Standard ROS - Review of Systems Eyes: No Symptoms Reported ENTM: No Symptoms Reported Respiratoy: No Symptoms Reported Cardiovascular: No Symptoms Reported Gastrointestinal/Abdominal: Other Genitourinary: No Symptoms Reported Neurological: No Symptoms Reported Musculoskeletal: No Symptoms Reported Integumentary: No Symptoms Reported Hematologic/Lymphatic: No Symptoms Reported Endocrine: No Symptoms Reported Psychiatric: No Symptoms Reported All Other Systems: Reviewed and Negative PE - Vital Signs Vitals: Temperature 97.6 F Pulse Rate 80 Respiratory Rate 20 Blood Pressure [Right Arm] 125/83 Blood Pressure 145/82 O2 Sat by Pulse Oximetry 96 - General General Appearance: Alert, In No Apparent Distress - Head Head Exam: Normal Inspection, Atraumatic - Eyes Eye exam: Normal Appearance, PERRL, EOMI - ENT ENT Exam: Normal Exam External Ear Exam: Normal External Inspection TM/Canal Exam: Bilateral Normal Nose Exam: Normal Nose Exam, Sinus Tenderness Mouth Exam: Normal Inspection Throat Exam: Normal Inspection - Neck Neck Exam: Normal Inspection, Full ROM - Chest Chest Inspection: Normal Inspection - Respiratory Respiratory Exam: Normal Lung Sounds Bilat Respiratory Exam: Bilateral Clear to Auscultation - Cardiovascular Cardiovascular Exam: Regular Rate, Normal Rhythm - Abdominal Exam Abdominal Exam: Normal Inspection, Normal Bowel Sounds Abdominal Tenderness: negative: RUQ, RLQ, LUQ, LLQ, Epigastrium, Suprapubic, Diffuse, Mild, Moderate, Severe, Other - Back Back Exam: Normal Inspection - Neurologic Neurological Exam: Alert, Oriented X3, CN II-XII Intact - Psychiatric Psychiatric Exam: Normal Affect, Normal Mood - Skin Skin Exam: Warm, Dry, Intact ROR - XRAY XRAY Interpreted by: Radiologist (KUB: The visualized bowel gas pattern is nonobstructive. No free air or pneumatosis is identifed. No pathologic calcifications are seen. Fusion hardward within the lower lumbar spine is noted without acute complication. The visualized lung bases are clear.) - Diagnosis Discharge Problem: Normal abdominal exam - Discharge Plan Condition: Stable - Follow ups/Referrals Follow ups/Referrals: BRAVO SALAZAR [Primary Care Provider] - 3 days - Instructions
--- NOTE | 2017-04-01 18:37 | RAD ---
Abdomen, two views Indication: Fluid build up in the abdomen Comparison: Abdominal ultrasound 10/29/2016 Findings: The visualized bowel gas pattern is nonobstructive. No free air or pneumatosis is identifie d. No pathologic calcifications are seen. Fusion hardware within the lower lumbar spine is noted with out acute complication. The visualized lung bases are clear. Impression: No acute abdominal abnormality. Reported By:
[2017-04-01 19:22] VITALS: BP 131/100
== END 2017-04-01 19:19 | disposition home or self-care (01) ==
LOC: ER 17:13
DX: R10.84 Generalized abdominal pain (principal)
CPT/HCPCS: 74000; 99282

== ENCOUNTER → 2017-04-06 | Outpatient (CLI) | payer BC ==
[2017-04-01 19:22] VITALS: BP 131/100
== END ==
LOC: LAB 08:32
PROVIDERS: ATTEND Surgery
DX: Z01.818 Encounter for other preprocedural examination (principal); E51.8 Other manifestations of thiamine deficiency; E53.8 Deficiency of other specified B group vitamins